=== PATIENT | male | born 1975 | race African-American/Black ===

== ENCOUNTER 2016-04-21 00:55 | Emergency (ER) | payer SELFPAY ==
[~2016-04-21] VITALS: Ht 188 cm; Wt 150.0 kg
[~2016-04-21 00:55] MED LIST: NIFE1TAB85 PO
[2016-04-21 01:09] VITALS: BP 182/84; PULSE 72; RESP 16; TEMP 97.8; O2SAT 99
[2016-04-21] MEDS ORDERED: MORPHINE SULFATE 4 MG/ML INJ IV PUSH ONE ×2 (01:30→06:15)
[2016-04-21] MEDS ORDERED: SODIUM CHLOR 0.9% 1000 ML INJ 1,000 ML IV ONE (01:30)
[2016-04-21] MEDS ORDERED: ONDANSETRON HCL 4 MG/2 ML VIAL ONE (01:36)
[2016-04-21] MEDS ORDERED: ONDANSETRON HCL 4 MG/2 ML VIAL IV ONE (01:45)
[2016-04-21 01:58] LABS: AUTOMATED NEUTROPHIL # 5.2 TH/MM3 (1.8-7.7); BASOPHIL % 0.5 % (0.0-2.0); EOSINOPHIL # 0.3 TH/MM3 (0-0.4); EOSINOPHIL % 3.6 % (0.0-4.0); HEMATOCRIT 43.7 % (39.0-51.0); HEMO FLAGS DIFF FINAL; LYMPH % 32.7 % (9.0-44.0); MEAN CELL VOLUME 86.2 FL (80.0-100.0); MEAN CORPUSCULAR HEMOGLOBIN 29.8 PG (27.0-34.0); MEAN CORPUSCULAR HGB CONC 34.5 % (32.0-36.0); MONO % 6.3 % (0.0-8.0); NEUT % 56.9 % (16.0-70.0); PLATELET COUNT 222 TH/MM3 (150-450); RED BLOOD COUNT 5.06 MIL/MM3 (4.50-5.90); RED CELL DISTRIBUTION WIDTH 13.6 % (11.6-17.2); WHITE BLOOD COUNT 9.2 TH/MM3 (4.0-11.0)
[2016-04-21 02:02] LABS: ALKALINE PHOSPHATASE 60 U/L (45-117); TOTAL BILIRUBIN ADULT 0.2 MG/DL (0.2-1.0)
[2016-04-21 02:04] LABS: ALT (GPT) 27 U/L (12-78); ANION GAP 8 MEQ/L (5-15); AST (GOT) 21 U/L (15-37); BICARBONATE 26.4 MEQ/L (21.0-32.0); BLOOD UREA NITROGEN 10 MG/DL (7-18); CHLORIDE 109 MEQ/L (98-107); GLOMERULAR FILTRATION RATE 91 ML/MIN (>89); POTASSIUM 3.8 MEQ/L (3.5-5.1); SODIUM (NA) 143 MEQ/L (136-145)
--- NOTE | 2016-04-21 02:38 | RADRPT ---
EXAM DATE/TIME: 04/21/2016 01:54 [facility] COMPARISON: No previous studies available for comparison. INDICATIONS : Trauma, fell backwards. Complains of head pain. Abrasion to left buddhist. RADIATION DOSE: 64.16 CTDIvol (mGy) MEDICAL HISTORY : Hypertension. Cardiovascular disease SURGICAL HISTORY : None. ENCOUNTER: Initial ACUITY: 1 day PAIN SCALE: 3/10 LOCATION: cranial TECHNIQUE: Multiple contiguous axial images were obtained of the head. Using automated exposure control and adj ustment of the mA and/or kV according to patient size, radiation dose was kept as low as reasonably a chievable to obtain optimal diagnostic quality images. FINDINGS: CEREBRUM: The ventricles are normal for age. No evidence of midline shift, mass lesion, hemorrhage or acute in farction. No extra-axial fluid collections are seen. POSTERIOR FOSSA: The cerebellum and brainstem are intact. The 4th ventricle is midline. The cerebellopontine angle i s unremarkable. EXTRACRANIAL: Truncation of the nasal bones anteriorly suggesting nasal bone fracture. SKULL: The calvaria is intact. No evidence of skull fracture. CONCLUSION: 1. No acute intracranial findings. 2. Likely nasal bone fracture. Bryan Shi MD on April 21, 2016 at 2:30 Board Certified Radiologist. This report was verified electronically.
--- NOTE | 2016-04-21 02:43 | RADRPT ---
EXAM DATE/TIME: 04/21/2016 01:54 [facility] COMPARISON: No previous studies available for comparison. INDICATIONS : Trauma, fell backwards. Complains of neck pain. RADIATION DOSE: 27.11 CTDIvol (mGy) MEDICAL HISTORY : Hypertension. Cardiovascular disease SURGICAL HISTORY : None. ENCOUNTER: Initial ACUITY: 1 day PAIN SCALE: 6/10 LOCATION: neck TECHNIQUE: Volumetric scanning of the cervical spine was performed. Multiplanar reconstructions in the sagittal, coronal and oblique axial planes were performed. Using automated exposure control and adjustment o f the mA and/or kV according to patient size, radiation dose was kept as low as reasonably achievable to obtain optimal diagnostic quality images. FINDINGS: VERTEBRAE: Normal vertebral body height. ALIGNMENT: No evidence of subluxation. C2-C3: The bony spinal canal is normal in size. No evidence of disc bulge or herniation. The neural forami na are bilaterally patent. C3-C4: Broad-based disc bulge. Mild central canal narrowing and mild right neural foraminal narrowing. C4-C5: Broad-based disc bulge. Central canal diameter within normal limits. Neural foraminal diameters withi n normal limits. C5-C6: Broad-based disc osteophyte complex right greater than left. Mild right neural foraminal narrowing. M ild to moderate central canal narrowing. C6-C7: Broad-based disc osteophyte complex left greater than right. Moderate left neural foraminal narrowing . Moderate narrowing of the left side of the central canal. C7-T1: Broad-based disc osteophyte complex left greater than right. Severe left neural foraminal narrowing. CONCLUSION: No evidence of fracture. Multilevel degenerative findings. Bryan Shi MD on April 21, 2016 at 2:36 Board Certified Radiologist. This report was verified electronically.
--- NOTE | 2016-04-21 02:46 | RADRPT ---
EXAM DATE/TIME: 04/21/2016 02:00 [facility] COMPARISON: No previous studies available for comparison. INDICATIONS : Trauma, fell backwards. Complains of back pain. RADIATION DOSE: 32.92 CTDIvol (mGy) ; Combined studies - Thoracic Spine/Lumbar Spine MEDICAL HISTORY : Hypertension. Cardiovascular disease SURGICAL HISTORY : None. ENCOUNTER: Initial ACUITY: 1 day PAIN SCALE: 6/10 LOCATION: lower back TECHNIQUE: Volumetric scanning of the lumbar spine was performed. Multiplanar reconstructions in the sagittal, coronal and oblique axial planes were performed. Using automated exposure control and adjustment of the mA and/or kV according to patient size, radiation dose was kept as low as reasonably achievable t o obtain optimal diagnostic quality images. FINDINGS: VERTEBRAE: Normal vertebral body height. ALIGNMENT: No evidence of subluxation. T12-L1: The thecal sac has a normal diameter. No evidence of disc bulge or protrusion. The neural foramina are patent bilaterally. L1-L2: The thecal sac has a normal diameter. No evidence of disc bulge or protrusion. The neural foramina are patent bilaterally. L2-L3: The thecal sac has a normal diameter. No evidence of disc bulge or protrusion. The neural foramina are patent bilaterally. L3-L4: Broad-based disc bulge. Mild left neural foraminal narrowing. Central canal diameter within normal li mits. L4-L5: Broad-based disc bulge. Moderate severity right-sided facet arthrosis. Mild left neural foraminal tyler rowing. Central canal diameter within normal limits. L5-S1: The thecal sac has a normal diameter. No evidence of disc bulge or protrusion. The neural foramina are patent bilaterally. CONCLUSION: No evidence of fracture. Multilevel degenerative findings. Bryan Shi MD on April 21, 2016 at 2:41 Board Certified Radiologist. This report was verified electronically.
--- NOTE | 2016-04-21 02:49 | RADRPT ---
EXAM DATE/TIME: 04/21/2016 02:00 [facility] COMPARISON: No previous studies available for comparison. INDICATIONS : Trauma, fell backwards. Complains of back pain. RADIATION DOSE: 32.92 CTDIvol (mGy) ; Combined studies - Thoracic Spine/Lumbar Spine MEDICAL HISTORY : Hypertension. Cardiovascular disease SURGICAL HISTORY : None. ENCOUNTER: Initial ACUITY: 1 day PAIN SCALE: 6/10 LOCATION: thoracic TECHNIQUE: Volumetric scanning of the thoracic spine was performed. Multiplanar reconstructions in the sagittal , coronal and oblique axial planes were performed. Using automated exposure control and adjustment o f the mA and/or kV according to patient size, radiation dose was kept as low as reasonably achievable to obtain optimal diagnostic quality images. FINDINGS: The vertebral bodies of the thoracic spine are in normal alignment without evidence of subluxation. Vertebral body height is maintained. No fractures are seen. T1-T2: Normal. T2-T3: The thecal sac has a normal diameter. No evidence of disc bulge or protrusion. T3-T4: The thecal sac has a normal diameter. No evidence of disc bulge or protrusion. T4-T5: The thecal sac has a normal diameter. No evidence of disc bulge or protrusion. T5-T6: The thecal sac has a normal diameter. No evidence of disc bulge or protrusion. T6-T7: The thecal sac has a normal diameter. No evidence of disc bulge or protrusion. T7-T8: The thecal sac has a normal diameter. No evidence of disc bulge or protrusion. T8-T9: The thecal sac has a normal diameter. No evidence of disc bulge or protrusion. T9-T10: The thecal sac has a normal diameter. No evidence of disc bulge or protrusion. T10-T11: The thecal sac has a normal diameter. No evidence of disc bulge or protrusion. T11-T12: The thecal sac has a normal diameter. No evidence of disc bulge or protrusion. T12-L1: The thecal sac has a normal diameter. No evidence of disc bulge or protrusion. CONCLUSION: No evidence of fracture. Bryan Shi MD on April 21, 2016 at 2:44 Board Certified Radiologist. This report was verified electronically.
--- NOTE | 2016-04-21 02:59 | PD ---
HPI Chief Complaint: Fall Time Seen by Provider: 01:04 Travel History International Travel<30 days: No Contact w/Intl Traveler<30days: No Traveled to known affect area: No History of Present Illness HPI A 40-year-old man who presents emergency department after slip and fall on the stairs. Complains of back pain. He also states he has some paresthesias in his left leg. Bystanders state he had positive LOC. A little bit nauseous no vomiting. No weakness. No other complaints. History Past Medical History Medical History: Denies Significant Hx Past Surgical History Surgical History: No Previous Surgery Social History Alcohol Use: No Tobacco Use: Yes (1 PPD) Allergies-Medications (Allergen,Severity, Reaction): Coded Allergies: Haldol (Verified Allergy, Severe, LOCK JAW, 10/12/11) Reported Meds & Prescriptions Reported Meds & Active Scripts Active Lortab (Hydrocodone-Acetaminophen) 5-325 Mg Tab 1-2 Tab PO Q6H PRN Naprosyn (Naproxen) 500 Mg Tab 500 Mg PO BID PRN Review of Systems Except as stated in HPI: all other systems reviewed are Neg Physical Exam Narrative GENERAL: Well-appearing 40-year-old man, no acute distress. Full spinal mobilization. SKIN: Warm and dry. HEAD: Normocephalic. He is a little bit of clotted blood on the back of his head. EYES: Pupils equal and round. No scleral icterus. No injection or drainage. ENT: No nasal bleeding or discharge. Mucous membranes pink and moist. NECK: Trachea midline. No midline tenderness in the lower cervical spine. Cervical collar in place. CARDIOVASCULAR: Regular rate and rhythm. No murmur appreciated. RESPIRATORY: No accessory muscle use. Clear to auscultation. Breath sounds equal bilaterally. GASTROINTESTINAL: Abdomen soft, non-tender, nondistended. Hepatic and splenic margins not palpable. MUSCULOSKELETAL: No obvious deformities. Pain in the upper lumbar spine with tenderness. No obvious step-off's or deformities. NEUROLOGICAL: Awake and alert. No obvious cranial nerve deficits. Subjective tingling in the left leg. Sensations intact to light touch. Strength full and equal both lower extremities. PSYCHIATRIC: Appropriate mood and affect; insight and judgment normal. Data Data Last Documented VS Vital Signs Date Time Temp Pulse Resp B/P Pulse Ox O2 Delivery O2 Flow Rate FiO2 04/21/16 01:09 97.8 72 16 182/[address] Brain W/O Iv Contrast(Rout) (04/21/16 ) Ct Cerv Spine W/O Contrast (04/21/16 ) Ct Thor Spine W/O Contrast (04/21/16 ) Ct Lumb Spine W/O Contrast (04/21/16 ) Iv Access Insert/Monitor (04/21/16 01:28) Complete Blood Count With Diff (04/21/16 01:28) Comprehensive Metabolic Panel (04/21/16 01:28) Sodium Chlor 0.9% 1000 Ml Inj (Ns 1000 M (04/21/16 01:30) Morphine Inj (Morphine Inj) (04/21/16 01:30) Ondansetron Inj (Zofran Inj) (04/21/16 01:36) Ondansetron Inj (Zofran Inj) (04/21/16 01:45) Lidocai-Epi 1%-1:100,000 Inj (Xylocaine- (04/21/16 04:15) Labs Laboratory Tests Test 04/21/16 01:40 White Blood Count 9.2 TH/MM3 Red Blood Count 5.06 MIL/MM3 Hemoglobin 15.1 GM/DL Hematocrit 43.7 % Mean Corpuscular Volume 86.2 FL Mean Corpuscular Hemoglobin 29.8 PG Mean Corpuscular Hemoglobin 34.5 % Concent Red Cell Distribution Width 13.6 % Platelet Count 222 TH/MM3 Mean Platelet Volume 7.3 FL Neutrophils (%) (Auto) 56.9 % Lymphocytes (%) (Auto) 32.7 % Monocytes (%) (Auto) 6.3 % Eosinophils (%) (Auto) 3.6 % Basophils (%) (Auto) 0.5 % Neutrophils # (Auto) 5.2 TH/MM3 Lymphocytes # (Auto) 3.0 TH/MM3 Monocytes # (Auto) 0.6 TH/MM3 Eosinophils # (Auto) 0.3 TH/MM3 Basophils # (Auto) 0.0 TH/MM3 CBC Comment DIFF FINAL Differential Comment Sodium Level 143 MEQ/L Potassium Level 3.8 MEQ/L Chloride Level 109 MEQ/L Carbon Dioxide Level 26.4 MEQ/L Anion Gap 8 MEQ/L Blood Urea Nitrogen 10 MG/DL Creatinine 1.09 MG/DL Estimat Glomerular Filtration 91 ML/MIN Rate Random Glucose 125 MG/DL Calcium Level 8.3 MG/DL Total Bilirubin 0.2 MG/DL Aspartate Amino Transf 21 U/L (AST/SGOT) Alanine Aminotransferase 27 U/L (ALT/SGPT) Alkaline Phosphatase 60 U/L Total Protein 6.9 GM/DL Albumin 3.4 GM/DL MDM Medical Decision Making Medical Screen Exam Complete: Yes Emergency Medical Condition: Yes Interpretation(s) LABS: CBC is unremarkable. CMP is unremarkable. Head CT: No acute intracranial findings. Likely nasal bone fracture. CT C-spine: No evidence of fracture. Multilevel degenerative findings. T-spine CT: Negative L-spine CT: No evidence of fracture. Multilevel degenerative findings. Differential Diagnosis Fall, contusion, or proximal he had, neuropathy, fracture, other Narrative Course Medical decision making Is a 40-year-old male presents emergency department after fall on the stairs. Looks well. Complains mostly of back pain. He also has some subjective paresthesias in the left leg. Neuro exam is otherwise normal. CT imaging is unremarkable. We'll do gait testing, reassess. May have some neurapraxia from contusion and hip or sciatic nerve. I don't see any other evidence of myelopathy or significant radiculopathy. FINAL: Patient looks well. CTs are negative. Does have a small laceration to back of his head. At first we didn't feel like this needed repair, and the family member called us back in the room visitor called us back in the room after it started bleeding again and was more open. We will repair this primarily, and the plan on discharge. Diagnosis Primary Impression: Back pain Qualified Code: M54.5 - Acute midline low back pain without sciatica Additional Impressions: Fall Qualified Code: W19.XXXA - Fall, initial encounter Scalp laceration Additional Instructions: Take Naprosyn as needed for pain. Take Lortab if needed for severe pain. Return to the emergency department in 7 days for staple removal. You will likely be more sore tomorrow. You may have soreness in your neck, back , arms or legs. You should not have any chest pain, trouble breathing, abdominal pain, worsening headache, any worsening numbness or tingling, or difficulty walking. If any of these other symptoms develop he should return to the emergency Department immediately. Follow-up with her primary physician if you're not completely well in 5-7 days. Med/Other Pt SpecificInfo: Prescription(s) given Scripts Hydrocodone-Acetaminophen (Lortab)5-325 Mg Tab1-2 Tab PO Q6H PRN (PAIN) #15 TAB Ref 0 Prov:Fernando Winn MD 04/21/16 Naproxen (Naprosyn)500 Mg [id number] Mg PO BID PRN (PAIN SCALE 1 TO 10) #20 TAB Prov:Fernando Winn MD 04/21/16 Disposition: 01 DISCHARGE HOME Condition: Stable Fernando Winn MD Apr 21, 2016 02:59
[2016-04-21] MEDS ORDERED: NAPR500 PO (03:05)
[2016-04-21] MEDS ORDERED: HYDR-3533 PO (03:05)
[2016-04-21] MEDS ORDERED: LIDOCAINE 1%/EPINEPHrine 1:100,000 SOLN 20 ML VIAL INFIL ONE (04:15)
--- NOTE | 2016-04-21 04:37 | PD ---
Physical Exam Narrative I was asked by Dr. Mcclendon to repair patient's scalp laceration. Please see his documentation for H&P. Data Data Last Documented VS Vital Signs Date Time Temp Pulse Resp B/P Pulse Ox O2 Delivery O2 Flow Rate FiO2 04/21/16 01:09 97.8 72 16 182/[address] Brain W/O Iv Contrast(Rout) (04/21/16 ) Ct Cerv Spine W/O Contrast (04/21/16 ) Ct Thor Spine W/O Contrast (04/21/16 ) Ct Lumb Spine W/O Contrast (04/21/16 ) Iv Access Insert/Monitor (04/21/16 01:28) Complete Blood Count With Diff (04/21/16 01:28) Comprehensive Metabolic Panel (04/21/16 01:28) Sodium Chlor 0.9% 1000 Ml Inj (Ns 1000 M (04/21/16 01:30) Morphine Inj (Morphine Inj) (04/21/16 01:30) Ondansetron Inj (Zofran Inj) (04/21/16 01:36) Ondansetron Inj (Zofran Inj) (04/21/16 01:45) Lidocai-Epi 1%-1:100,000 Inj (Xylocaine- (04/21/16 04:15) Labs Laboratory Tests Test 04/21/16 01:40 White Blood Count 9.2 TH/MM3 Red Blood Count 5.06 MIL/MM3 Hemoglobin 15.1 GM/DL Hematocrit 43.7 % Mean Corpuscular Volume 86.2 FL Mean Corpuscular Hemoglobin 29.8 PG Mean Corpuscular Hemoglobin 34.5 % Concent Red Cell Distribution Width 13.6 % Platelet Count 222 TH/MM3 Mean Platelet Volume 7.3 FL Neutrophils (%) (Auto) 56.9 % Lymphocytes (%) (Auto) 32.7 % Monocytes (%) (Auto) 6.3 % Eosinophils (%) (Auto) 3.6 % Basophils (%) (Auto) 0.5 % Neutrophils # (Auto) 5.2 TH/MM3 Lymphocytes # (Auto) 3.0 TH/MM3 Monocytes # (Auto) 0.6 TH/MM3 Eosinophils # (Auto) 0.3 TH/MM3 Basophils # (Auto) 0.0 TH/MM3 CBC Comment DIFF FINAL Differential Comment Sodium Level 143 MEQ/L Potassium Level 3.8 MEQ/L Chloride Level 109 MEQ/L Carbon Dioxide Level 26.4 MEQ/L Anion Gap 8 MEQ/L Blood Urea Nitrogen 10 MG/DL Creatinine 1.09 MG/DL Estimat Glomerular Filtration 91 ML/MIN Rate Random Glucose 125 MG/DL Calcium Level 8.3 MG/DL Total Bilirubin 0.2 MG/DL Aspartate Amino Transf 21 U/L (AST/SGOT) Alanine Aminotransferase 27 U/L (ALT/SGPT) Alkaline Phosphatase 60 U/L Total Protein 6.9 GM/DL Albumin 3.4 GM/DL [facility] Supervised Visit with [facility]: No Procedures Procedure Narrative LACERATION REPAIR LOCATION: Left parietal lobe LENGTH: Approximately 1 cm NUMBER OF STITCHES/BETO: 2 beto REPAIR: Verbal consent was obtained. The area of the laceration was cleaned and prepped. The laceration was infiltrated with lidocaine with epi. The wound was copiously irrigated and explored without evidence of foreign body, bony involvement, ligament injury, tendon injury, or neurovascular injury. The wound was closed using beto. This was a single layer repair. A sterile dressing was applied by nurse. The patient was advised to keep the affected area as clean and dry as possible using soap and water. There were no complications. Patient tolerated the procedure well. Diagnosis Primary Impression: Back pain Qualified Code: M54.5 - Acute midline low back pain without sciatica Additional Impressions: Scalp laceration Fall Qualified Code: W19.XXXA - Fall, initial encounter Additional Instruction: Take Naprosyn as needed for pain. Take Lortab if needed for severe pain. Return to the emergency department in 7 days for staple removal. You will likely be more sore tomorrow. You may have soreness in your neck, back , arms or legs. You should not have any chest pain, trouble breathing, abdominal pain, worsening headache, any worsening numbness or tingling, or difficulty walking. If any of these other symptoms develop he should return to the emergency Department immediately. Follow-up with her primary physician if you're not completely well in 5-7 days. Scripts Hydrocodone-Acetaminophen (Lortab)5-325 Mg Tab1-2 Tab PO Q6H PRN (PAIN) #15 TAB Ref 0 Prov:Fernando Winn MD 04/21/16 Naproxen (Naprosyn)500 Mg [id number] Mg PO BID PRN (PAIN SCALE 1 TO 10) #20 TAB Prov:Fernando Winn MD 04/21/16 Disposition: 01 DISCHARGE HOME Condition: Stable Matt Hinkle Apr 21, 2016 04:37
[2016-04-21] MEDS ORDERED: KETOROLAC TROMETHAMINE 30 MG/ML (IVP) VIAL IVP ONE (06:15)
== END 2016-04-21 06:55 | disposition home or self-care (01) ==
LOC: NEPE 00:55
DX: M54.5 Low back pain (principal); S01.01XA Laceration without foreign body of scalp, initial encounter; R20.2 Paresthesia of skin; R11.0 Nausea; F17.200 Nicotine dependence, unspecified, uncomplicated; W10.9XXA Fall (on) (from) unspecified stairs and steps, initial encounter
CPT/HCPCS: 12001; 70450; 72125; 72128; 72131; 80053; 85025; 96361; 96374; 96375; 96376; 99284; J1885; J2270; J2405; J7030

== ENCOUNTER 2016-08-08 23:07 | Emergency (ER) | payer SELFPAY ==
[~2016-08-08] VITALS: Ht 180.3 cm; Wt 115.0 kg
[~2016-08-08 23:07] MED LIST changes: +HYDR-3533 PO; +NAPR500 PO; -NIFE1TAB85 PO
[2016-08-08 23:23] VITALS: BP 137/81; PULSE 82; RESP 16; O2SAT 97
--- NOTE | 2016-08-08 23:24 | PD ---
HPI Chief Complaint: Fall Time Seen by Provider: 23:19 Travel History International Travel<30 days: No Contact w/Intl Traveler<30days: No Traveled to known affect area: No History of Present Illness HPI 40-year-old male presents to the emergency department by EMS transport with backboard C-spine immobilization after a slip and fall in the bathroom just prior to arrival to the emergency department. Patient is uncertain whether he did or did not have loss of consciousness. Patient did sustain a small laceration to the posterior occiput of the scalp. Patient also complained of low back pain. According to EMS report he did complain of some focal tingling to the left hand/digits but states that has improved. No lower leg numbness tingling or weakness. No prior history of head injury neck injury or back injury reportedly. Patient takes no medications on a daily basis and has no prescription medications. Patient does not know his tetanus status. Last oral intake was approximately an hour before the event. 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) Hypertension: Yes (newly diagnosed today) Psychiatric: Yes Past Surgical History Surgical History: No Previous Surgery Coronary Artery Bypass Graft: No Social History Alcohol Use: No Tobacco Use: No Substance Use: No (PT DENIES) Allergies-Medications (Allergen,Severity, Reaction): Coded Allergies: Haldol (Verified Allergy, Severe, LOCK JAW, 08/08/16) Reported Meds & Prescriptions Reported Meds & Active Scripts Active Robaxin (Methocarbamol) 750 Mg Tab 750 Mg PO Q6HR Lortab (Hydrocodone-Acetaminophen) 5-325 Mg Tab 1-2 Tab PO Q6H PRN Naprosyn (Naproxen) 500 Mg Tab 500 Mg PO BID PRN Physical Exam Narrative GENERAL: Well-developed well-nourished male in no respiratory distress appears mildly anxious with backboard C-spine immobilization*: GCS 15 SKIN: Warm and dry. HEAD: Patient with 2 cm linear laceration to the right upper posterior scalp with soft tissue tenderness to palpation no bony abnormality. EYES: Pupils equal and round. No scleral icterus. No injection or drainage. ENT: No nasal bleeding or discharge. Mucous membranes pink and moist. No hemotympanum. NECK: Trachea midline. No JVD. C-collar in place. CARDIOVASCULAR: Regular rate and rhythm. RESPIRATORY: No accessory muscle use. Clear to auscultation. Breath sounds equal bilaterally. GASTROINTESTINAL: Abdomen soft, non-tender, nondistended. Hepatic and splenic margins not palpable. MUSCULOSKELETAL: Extremities without clubbing, cyanosis, or edema. No obvious deformities. Patient log rolled from backboard with maintain spinal immobilization. No tenderness to palpation along the thoracic spine, mild tenderness to palpation along the lower lumbar spine; no bony step-off. No flank tenderness bilaterally. Rectal exam performed with normal sphincter tone. NEUROLOGICAL: Awake and alert. No obvious cranial nerve deficits. Motor grossly within normal limits. Five out of 5 muscle strength in the arms and legs. Sensory exam intact bilateral upper extremities and lower extremities. DTRs 2+ and symmetric. Normal speech. PSYCHIATRIC: Appropriate mood and affect; insight and judgment normal. Data Data Last Documented VS Vital Signs Date Time Temp Pulse Resp B/P Pulse Ox O2 Delivery O2 Flow Rate FiO2 08/09/16 01:14 98.1 86 18 121/60 100 Room Air Orders Basic Metabolic Panel (Bmp) (08/08/16 23:19) Complete Blood Count With Diff (08/08/16 23:19) Prothrombin Time / Inr (Pt) (08/08/16 23:19) Act Partial Throm Time (Ptt) (08/08/16 23:19) Alcohol (Ethanol) (08/08/16 23:19) Chest, Single Ap (08/08/16 23:19) Ct Brain W/O Iv Contrast(Rout) (08/08/16 23:19) Ct Cerv Spine W/O Contrast (08/08/16 23:19) Iv Access Insert/Monitor (08/08/16 23:19) Ecg Monitoring (08/08/16 23:19) Oximetry (08/08/16 23:19) Oxygen Administration (08/08/16 23:19) Remove Backboard (08/08/16 23:19) Zekz-Rcr-Exbwup (Booster) Inj (Boostrix (08/08/16 23:30) Sodium Chlor 0.9% 1000 Ml Inj (Ns 1000 M (08/08/16 23:30) Spine, Lumbar - Ltd (Ap & Lat) (08/08/16 ) Remove Cervical Collar (08/09/16 00:32) Ondansetron Inj (Zofran Inj) (08/09/16 01:00) Morphine Inj (Morphine Inj) (08/09/16 01:00) Ketorolac Inj (Toradol Inj) (08/09/16 01:00) Lidocaine Pf 1% Inj (Xylocaine-Mpf 1% In (08/09/16 01:30) Labs Laboratory Tests Test 08/08/16 23:24 White Blood Count 8.6 TH/MM3 Red Blood Count 5.35 MIL/MM3 Hemoglobin 15.6 GM/DL Hematocrit 45.6 % Mean Corpuscular Volume 85.3 FL Mean Corpuscular Hemoglobin 29.2 PG Mean Corpuscular Hemoglobin 34.2 % Concent Red Cell Distribution Width 13.0 % Platelet Count 249 TH/MM3 Mean Platelet Volume 7.2 FL Neutrophils (%) (Auto) 55.0 % Lymphocytes (%) (Auto) 34.7 % Monocytes (%) (Auto) 6.4 % Eosinophils (%) (Auto) 3.5 % Basophils (%) (Auto) 0.4 % Neutrophils # (Auto) 4.7 TH/MM3 Lymphocytes # (Auto) 3.0 TH/MM3 Monocytes # (Auto) 0.6 TH/MM3 Eosinophils # (Auto) 0.3 TH/MM3 Basophils # (Auto) 0.0 TH/MM3 CBC Comment DIFF FINAL Differential Comment Prothrombin Time 10.6 SEC Prothromb Time International 1.0 RATIO Ratio Activated Partial 27.5 SEC Thromboplast Time Sodium Level 140 MEQ/L Potassium Level 3.8 MEQ/L Chloride Level 104 MEQ/L Carbon Dioxide Level 30.0 MEQ/L Anion Gap 6 MEQ/L Blood Urea Nitrogen 12 MG/DL Creatinine 1.20 MG/DL Estimat Glomerular Filtration 81 ML/MIN Rate Random Glucose 114 MG/DL Calcium Level 8.5 MG/DL Ethyl Alcohol Level LESS THAN 3 MG/DL MDM Medical Decision Making Medical Screen Exam Complete: Yes Emergency Medical Condition: Yes Medical Record Reviewed: Yes (patient was here April 2016 for back injury with negative CT thoracic and lumbar spine) Interpretation(s) Last Impressions Head CT 08/08/16 0342 Signed Impressions: Service Date/Time: Monday, August 08, 2016 23:51 - CONCLUSION: Normal examination. Fernando Ansari MD Chest X-Ray [id number]/08/[id number] Signed Impressions: Service Date/Time: Monday, August 08, 2016 23:46 - CONCLUSION: Normal examination. Fernando Ansari MD Cervical Spine CT [id number]/08/[id number] Signed Impressions: Service Date/Time: Monday, August 08, 2016 23:51 - CONCLUSION: Normal examination. Fernando Ansari MD Lumbar Spine X-Ray 08/08/16 0000 Signed Impressions: Service Date/Time: Monday, August 08, 2016 23:48 - CONCLUSION: Unremarkable limited examination of the lumbar spine. Fernando Ansari MD Vital Signs Date Time Temp Pulse Resp B/P Pulse Ox O2 Delivery O2 Flow Rate FiO2 08/08/16 23:23 82 16 137/81 97 Room Air 08/08/16 23:18 18 Differential Diagnosis Minor CHI, ICH scalp contusion, scalp laceration, skull fracture, cervical spine sprain strain fracture cord compression, contusion Narrative Course Patient removed from backboard with maintained spinal immobilization; imaging studies ordered CT brain noncontrast CT cervical spine noncontrast chest x-ray lumbar spine with limited views all found to reveal no acute abnormality or trauma changes At 12:43 AM cervical collar removed by me after CT cervical spine per reading radiologist reveals no acute abnormality; patient has a 2 cm linear scalp laceration to the right parietal scalp. One site stable. Patient administered morphine 3 mg IV along with Toradol 30 mg IV for management of associated pain Scalp laceration repaired Patient clinically improved and stable for outpatient management. Procedures Procedure Narrative LACERATION LOCATION: Right posterior scalp LENGTH: 2 cm NUMBER OF STITCHES/JOSE DANIEL: 3 REPAIR: The area of the laceration was prepped with Betadine and sterilely draped. The laceration was infiltrated with 1% lidocaine pain. The wound was copiously irrigated and explored without evidence of foreign body, tendon injury or neurovascular injury. The wound was closed using 5-0 Prolene. This was a single layer repair. A sterile dressing was applied. The patient was advised to keep the dressing clean and dry. Patient tolerated the procedure well. Diagnosis Primary Impression: Scalp laceration Qualified Code: S01.01XA - Scalp laceration, initial encounter Additional Impressions: Back pain Qualified Code: M54.5 - Acute midline low back pain without sciatica Minor closed head injury Referrals: Primary Care Physician call for appointment Patient Instructions: Narcotic given in the ED, General Instructions Additional Instructions: Increase fluid hydration Follow-up with primary care provider call on Thursday to schedule follow-up appointment; wound check 2 days, suture removal 5-7 days Take acetaminophen/Tylenol every 4 hours as needed for fever 100.4F or greater and/or for minor pain Take ibuprofen 800 mg as often as every 8 hours as needed for pain associated inflammation or for fever 100.4F or greater Take muscle relaxant Robaxin as prescribed as needed for muscle spasm Use ice intermittently to areas of soft tissue swelling and discomfort for the first 12-24 hours then moist heat for comfort as needed Return to the emergency department for any concerns or change in condition Med/Other Pt SpecificInfo: Prescription(s) given Scripts Methocarbamol (Robaxin)750 Mg [id number] Mg PO Q6HR #12 TAB Ref 0 Prov:Nehal Salazar MD 08/09/16 Disposition: 01 DISCHARGE HOME Condition: Stable Nehal Salazar MD Aug 08, 2016 23:24
[2016-08-08] MEDS ORDERED: SODIUM CHLOR 0.9% 1000 ML INJ 1,000 ML IV SCH (23:30)
[2016-08-08] MEDS ORDERED: DIPHTH/TETANUS/ACEL PERTUSSIS (BOOSTER) 0.5 ML VIAL/PFS IM ONE (23:30)
--- NOTE | 2016-08-09 00:03 | RADRPT ---
EXAM DATE/TIME: 08/08/2016 23:51 [facility] COMPARISON: No previous studies available for comparison. INDICATIONS : Trauma, fall and hit head. RADIATION DOSE: 50.21 CTDIvol (mGy) MEDICAL HISTORY : Cardiovascular disease. Hypertension. SURGICAL HISTORY : None. ENCOUNTER: Initial ACUITY: 1 day PAIN SCALE: 6/10 LOCATION: cranial TECHNIQUE: Multiple contiguous axial images were obtained of the head. Using automated exposure control and adj ustment of the mA and/or kV according to patient size, radiation dose was kept as low as reasonably a chievable to obtain optimal diagnostic quality images. DICOM format image data is available electro nically for review and comparison. FINDINGS: CEREBRUM: The ventricles are normal for age. No evidence of midline shift, mass lesion, hemorrhage or acute in farction. No extra-axial fluid collections are seen. POSTERIOR FOSSA: The cerebellum and brainstem are intact. The 4th ventricle is midline. The cerebellopontine angle i s unremarkable. EXTRACRANIAL: The visualized portion of the orbits is intact. The left TMJ remains wider than the right similar to April 2016 SKULL: The calvaria is intact. No evidence of skull fracture. CONCLUSION: Normal examination. Fernando Ansari MD on August 09, 2016 at 0:01 Board Certified Radiologist. This report was verified electronically.
--- NOTE | 2016-08-09 00:05 | RADRPT ---
EXAM DATE/TIME: 08/08/2016 23:46 [facility] COMPARISON: No previous studies available for comparison. INDICATIONS : Back pain from a fall. MEDICAL HISTORY : None. SURGICAL HISTORY : None. ENCOUNTER: Initial ACUITY: 1 day PAIN SCORE: 10/10 LOCATION: Bilateral Back FINDINGS: A single view of the chest demonstrates the lungs to be symmetrically aerated without evidence of mas s, infiltrate or effusion. The cardiomediastinal contours are unremarkable. Osseous structures are intact. CONCLUSION: Normal examination. Fernando Ansari MD on August 09, 2016 at 0:03 Board Certified Radiologist. This report was verified electronically.
[2016-08-09 00:07] LABS: AUTOMATED NEUTROPHIL # 4.7 TH/MM3 (1.8-7.7); BASOPHIL % 0.4 % (0.0-2.0); EOSINOPHIL # 0.3 TH/MM3 (0-0.4); EOSINOPHIL % 3.5 % (0.0-4.0); HEMATOCRIT 45.6 % (39.0-51.0); HEMO FLAGS DIFF FINAL; LYMPH % 34.7 % (9.0-44.0); MEAN CELL VOLUME 85.3 FL (80.0-100.0); MEAN CORPUSCULAR HEMOGLOBIN 29.2 PG (27.0-34.0); MEAN CORPUSCULAR HGB CONC 34.2 % (32.0-36.0); MONO % 6.4 % (0.0-8.0); PLATELET COUNT 249 TH/MM3 (150-450); RED BLOOD COUNT 5.35 MIL/MM3 (4.50-5.90); WHITE BLOOD COUNT 8.6 TH/MM3 (4.0-11.0)
--- NOTE | 2016-08-09 00:08 | RADRPT ---
EXAM DATE/TIME: 08/08/2016 23:48 [facility] COMPARISON: No previous studies available for comparison. INDICATIONS : Back pain from a fall. MEDICAL HISTORY : None. SURGICAL HISTORY : None. ENCOUNTER: Initial ACUITY: 1 day PAIN SCORE: 10/10 LOCATION: Bilateral back FINDINGS: Two view examination was performed. There are five non-rib bearing vertebral bodies. The vertebral bodies are in normal alignment without evidence of subluxation or scoliosis. The disc spaces are humberto ntained. The pedicles are intact. Bony mineralization is normal. No fracture is identified. CONCLUSION: Unremarkable limited examination of the lumbar spine. Fernando Ansari MD on August 09, 2016 at 0:06 Board Certified Radiologist. This report was verified electronically.
[2016-08-09 00:17] LABS: APTT (PATIENT) 27.5 SEC (24.3-30.1); PROTHROMBIN TIME - PATIENT 10.6 SEC (9.8-11.6)
[2016-08-09 00:26] LABS: ANION GAP 6 MEQ/L (5-15); BLOOD UREA NITROGEN 12 MG/DL (7-18); CHLORIDE 104 MEQ/L (98-107); GLOMERULAR FILTRATION RATE 81 ML/MIN (>89); POTASSIUM 3.8 MEQ/L (3.5-5.1); SODIUM (NA) 140 MEQ/L (136-145)
--- NOTE | 2016-08-09 00:26 | RADRPT ---
EXAM DATE/TIME: 08/08/2016 23:51 [facility] COMPARISON: CT CERVICAL SPINE W/O CONTRAST, April 21, 2016, 1:54. INDICATIONS : Trauma, fall and hit head. RADIATION DOSE: 21.60 CTDIvol (mGy) MEDICAL HISTORY : Cardiovascular disease. Hypertension. SURGICAL HISTORY : None. ENCOUNTER: Initial ACUITY: 1 day PAIN SCALE: 3/10 LOCATION: neck TECHNIQUE: Volumetric scanning of the cervical spine was performed. Multiplanar reconstructions in the sagittal, coronal and oblique axial planes were performed. Using automated exposure control and adjustment o f the mA and/or kV according to patient size, radiation dose was kept as low as reasonably achievable to obtain optimal diagnostic quality images. DICOM format image data is available electronically f or review and comparison. FINDINGS: VERTEBRAE: Normal vertebral body height. ALIGNMENT: No evidence of subluxation. C2-C3: The bony spinal canal is normal in size. No evidence of disc bulge or herniation. The neural forami na are bilaterally patent. C3-C4: The bony spinal canal is normal in size. No evidence of disc bulge or herniation. The neural forami na are bilaterally patent. C4-C5: The bony spinal canal is normal in size. No evidence of disc bulge or herniation. The neural forami na are bilaterally patent. C5-C6: The bony spinal canal is normal in size. No evidence of disc bulge or herniation. The neural forami na are bilaterally patent. C6-C7: The bony spinal canal is normal in size. No evidence of disc bulge or herniation. The neural forami na are bilaterally patent. C7-T1: The bony spinal canal is normal in size. No evidence of disc bulge or herniation. The neural forami na are bilaterally patent. CONCLUSION: Normal examination. Fernando Ansari MD on August 09, 2016 at 0:24 Board Certified Radiologist. This report was verified electronically.
[2016-08-09] MEDS ORDERED: MORPHINE SULFATE 4 MG/ML INJ IV PUSH ONE (01:00)
[2016-08-09] MEDS ORDERED: KETOROLAC TROMETHAMINE 30 MG/ML (IVP) VIAL IV PUSH ONE (01:00)
[2016-08-09] MEDS ORDERED: ONDANSETRON HCL 4 MG/2 ML VIAL IV PUSH ONE (01:00)
[2016-08-09 01:14] VITALS: BP 121/60; PULSE 86; RESP 18; TEMP 98.1; O2SAT 100
[2016-08-09] MEDS ORDERED: LIDOCAINE HCL 1% PF 30 ML VIAL INFIL ONE (01:30)
[2016-08-09] MEDS ORDERED: ROBA750T PO (01:49)
== END 2016-08-09 02:39 | disposition home or self-care (01) ==
LOC: NEPC 23:07
DX: S01.01XA Laceration without foreign body of scalp, initial encounter (principal); M54.5 Low back pain; M54.9 Dorsalgia, unspecified; S09.90XA Unspecified injury of head, initial encounter; I10 Essential (primary) hypertension; W01.0XXA Fall on same level from slipping, tripping and stumbling without subsequent striking against object, initial encounter; Z79.899 Other long term (current) drug therapy; Z23 Encounter for immunization
CPT/HCPCS: 12001; 70450; 71010; 72100; 72125; 80048; 80307; 85025; 85610; 85730; 90471; 90715; 96374; 96375; 99285; J1885; J2270; J2405; J7030

== ENCOUNTER 2017-03-19 22:27 | Emergency (ER) | payer SELFPAY ==
[~2017-03-19] VITALS: Ht 188 cm; Wt 110.0 kg
[~2017-03-19 22:27] MED LIST changes: +ROBA750T PO
[2017-03-19 22:31] VITALS: BP 135/92; PULSE 97; RESP 16; TEMP 98.4; O2SAT 97
[2017-03-20 02:12] VITALS: TEMP 98.8
[2017-03-20] MEDS ORDERED: FAMOTIDINE 20 MG/2 ML VIAL IV PUSH SCH (02:30)
[2017-03-20] MEDS ORDERED: ONDANSETRON HCL 4 MG/2 ML VIAL IV PUSH ONE (02:30)
[2017-03-20] MEDS ORDERED: KETOROLAC TROMETHAMINE 30 MG/ML (IVP) VIAL IV PUSH ONE (02:30)
[2017-03-20 02:56] LABS: AUTOMATED NEUTROPHIL # 5.1 TH/MM3 (1.8-7.7); BASOPHIL % 0.4 % (0.0-2.0); EOSINOPHIL % 10.2 % (0.0-4.0); HEMATOCRIT 46.2 % (39.0-51.0); LYMPH % 26.4 % (9.0-44.0); LYMPHOCYTE # 2.5 TH/MM3 (1.0-4.8); MEAN CELL VOLUME 87.1 FL (80.0-100.0); MEAN CORPUSCULAR HEMOGLOBIN 30.2 PG (27.0-34.0); MEAN CORPUSCULAR HGB CONC 34.6 % (32.0-36.0); MEAN PLATELET VOLUME 6.9 FL (7.0-11.0); MONO % 8.7 % (0.0-8.0); MONOCYTE # 0.8 TH/MM3 (0-0.9); NEUT % 54.3 % (16.0-70.0); PLATELET COUNT 218 TH/MM3 (150-450); RED CELL DISTRIBUTION WIDTH 13.7 % (11.6-17.2); WHITE BLOOD COUNT 9.3 TH/MM3 (4.0-11.0)
[2017-03-20] MEDS ORDERED: methylPREDNISolone SOD SUCC 125 MG/2 ML VIAL IV PUSH SCH (03:15)
[2017-03-20] MEDS ORDERED: RESP: ALBUTEROL 2.5 MG/IPRATROPIUM 0.5 MG NEB (SCH) NEB ONE (03:15)
[2017-03-20] MEDS ORDERED: guaiFENesin/CODEINE SYRUP 200 MG/20 MG/10 ML CUP PO ONE (03:15)
[2017-03-20 03:44] LABS: ALBUMIN 3.4 GM/DL (3.4-5.0); ALT (GPT) 14 U/L (12-78); AST (GOT) 15 U/L (15-37); BICARBONATE 31.3 MEQ/L (21.0-32.0); BLOOD UREA NITROGEN 12 MG/DL (7-18); CALCIUM 8.7 MG/DL (8.5-10.1); CHLORIDE 104 MEQ/L (98-107); GLOMERULAR FILTRATION RATE 100 ML/MIN (>89); GLUCOSE,RANDOM 79 MG/DL (74-106); SODIUM (NA) 139 MEQ/L (136-145)
[2017-03-20 03:45] LABS: ALKALINE PHOSPHATASE 100 U/L (45-117); TOTAL BILIRUBIN ADULT 0.2 MG/DL (0.2-1.0); TOTAL PROTEIN 7.9 GM/DL (6.4-8.2)
[2017-03-20] MEDS ORDERED: GUAISYP4 PO (05:28)
[2017-03-20] MEDS ORDERED: DIPH12.5S PO (05:28)
[2017-03-20] MEDS ORDERED: IBUP-232 PO (05:28)
[2017-03-20] MEDS ORDERED: IPRA17I INH (05:28)
[2017-03-20] MEDS ORDERED: PRED50 PO (05:30)
--- NOTE | 2017-03-20 05:37 | PD ---
HPI Chief Complaint: GI Complaint Time Seen by Provider: 02:04 Travel History International Travel<30 days: No Contact w/Intl Traveler<30days: No Traveled to known affect area: No History of Present Illness HPI Patient is a 41-year-old male he was seen earlier in [facility] for upper respiratory like symptoms and vomited and then he was upgraded to come to [facility] pod. Patient is complaining of congestion mucus in his upper airway vomiting generalized malaise flu like symptoms as well as wheezing cough. 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) Hypertension: Yes Psychiatric: Yes Respiratory: Yes (Asthma) Immunizations Current: Yes Tetanus Vaccination: < 5 Years Influenza Vaccination: No Past Surgical History Surgical History: No Previous Surgery Coronary Artery Bypass Graft: No Social History Alcohol Use: No Tobacco Use: No Substance Use: No (PT DENIES) Allergies-Medications (Allergen,Severity, Reaction): Coded Allergies: haloperidol (Unverified Allergy, Severe, LOCK JAW, 03/20/17) Reported Meds & Prescriptions Reported Meds & Active Scripts Active Prednisone 50 Mg Tab 50 Mg PO DAILY Ibuprofen 600 Mg Tab 600 Mg PO Q6H PRN Guaifenesin AC Liq (Guaifenesin-Codeine Liq) 100-10 Mg/5 Ml Syrp 10 Ml PO Q6H PRN Diphenhydramine Liq (Diphenhydramine HCl) 12.5 Mg/5 Ml Elix 12.5 Mg PO Q6H PRN Atrovent HFA 12.9 GM Inh (Ipratropium Hallock) 17 Mcg/Actuation Aer 2 Puff INH Q6HR PRN Review of Systems Except as stated in HPI: all other systems reviewed are Neg Physical Exam Narrative GENERAL: Patient seems uncomfortable but is nontoxic appearing no obvious respiratory distress SKIN: Warm and dry. HEAD: Atraumatic. Normocephalic. EYES: Pupils equal and round. No scleral icterus. No injection or drainage. ENT: No nasal bleeding or discharge. Mucous membranes pink and moist. Congested nasally posterior pharynx erythematous NECK: Trachea midline. No JVD. CARDIOVASCULAR: Regular rate and rhythm. RESPIRATORY: No accessory muscle use. bilaterally. Patient is minimal wheeze in the upper air cedeno bilaterally GASTROINTESTINAL: Abdomen soft, non-tender, nondistended. Hepatic and splenic margins not palpable. MUSCULOSKELETAL: Extremities without clubbing, cyanosis, or edema. No obvious deformities. NEUROLOGICAL: Awake and alert. No obvious cranial nerve deficits. Motor grossly within normal limits. Five out of 5 muscle strength in the arms and legs. Normal speech. PSYCHIATRIC: Appropriate mood and affect; insight and judgment normal. Data Data Last Documented VS Orders Orders Influenzae A/B Antigen (03/20/17 01:01) Complete Blood Count With Diff (03/20/17 02:18) Comprehensive Metabolic Panel (03/20/17 02:18) Lipase (03/20/17 02:18) Famotidine Inj (Pepcid Inj) (03/20/17 02:30) Ketorolac Inj (Toradol Inj) (03/20/17 02:30) Ondansetron Inj (Zofran Inj) (03/20/17 02:30) Albuterol-Ipratropium Neb (Duoneb Neb) (03/20/17 03:15) Methylprednisolone So Succ Inj (Solumedr (03/20/17 03:15) Guaifen-Cod 200-20 Mg/10ml Liq (Robituss (03/20/17 03:15) Ed Discharge Order (03/20/17 05:43) Labs Laboratory Tests Test 03/20/17 02:35 White Blood Count 9.3 TH/MM3 Red Blood Count 5.30 MIL/MM3 Hemoglobin 16.0 GM/DL Hematocrit 46.2 % Mean Corpuscular Volume 87.1 FL Mean Corpuscular Hemoglobin 30.2 PG Mean Corpuscular Hemoglobin Concent 34.6 % Red Cell Distribution Width 13.7 % Platelet Count 218 TH/MM3 Mean Platelet Volume 6.9 FL Neutrophils (%) (Auto) 54.3 % Lymphocytes (%) (Auto) 26.4 % Monocytes (%) (Auto) 8.7 % Eosinophils (%) (Auto) 10.2 % Basophils (%) (Auto) 0.4 % Neutrophils # (Auto) 5.1 TH/MM3 Lymphocytes # (Auto) 2.5 TH/MM3 Monocytes # (Auto) 0.8 TH/MM3 Eosinophils # (Auto) 1.0 TH/MM3 Basophils # (Auto) 0.0 TH/MM3 CBC Comment DIFF FINAL Differential Comment Blood Urea Nitrogen 12 MG/DL Creatinine 1.00 MG/DL Random Glucose 79 MG/DL Total Protein 7.9 GM/DL Albumin 3.4 GM/DL Calcium Level 8.7 MG/DL Alkaline Phosphatase 100 U/L Aspartate Amino Transf (AST/SGOT) 15 U/L Alanine Aminotransferase (ALT/SGPT) 14 U/L Total Bilirubin 0.2 MG/DL Sodium Level 139 MEQ/L Potassium Level 4.1 MEQ/L Chloride Level 104 MEQ/L Carbon Dioxide Level 31.3 MEQ/L Anion Gap 4 MEQ/L Estimat Glomerular Filtration Rate 100 ML/MIN Lipase 97 U/L [facility] Medical Decision Making Medical Screen Exam Complete: Yes Emergency Medical Condition: Yes Differential Diagnosis Influenza versus viral illness versus strep pharyngitis versus upper respiratory infection NOS versus gastroenteritis Narrative Course pt has symptomatic treatment feels Diagnosis Primary Impression: Viral illness Patient Instructions: Acute Bronchitis (ED), General Instructions Scripts Prednisone (Prednisone) 50 Mg Tab 50 MG PO DAILY, #4 TAB 0 Refills Prov: Jerson Mckeon MD 03/20/17 Ibuprofen (Ibuprofen) 600 Mg Tab 600 MG PO Q6H Y for Pain/Inflammation, #20 TAB 0 Refills Prov: Jerson Mckeon MD 03/20/17 Guaifenesin-Codeine Liq (Guaifenesin AC Liq) 100-10 Mg/5 Ml Syrp 10 ML PO Q6H Y for COUGH, #1 BOTTLE 0 Refills Prov: Jerson Mckeon MD 03/20/17 Diphenhydramine Liq (Diphenhydramine Liq) 12.5 Mg/5 Ml Elix 12.5 MG PO Q6H Y for ALLERGIES, #1 BOTTLE 0 Refills Prov: Jerson Mckeon MD 03/20/17 Ipratropium HFA 12.9 GM Inh (Atrovent HFA 12.9 GM Inh) 17 Mcg/Actuation Aer 2 PUFF INH Q6HR Y for SHORTNESS OF BREATH, #1 INHALER 0 Refills Prov: Jerson Mckeon MD 03/20/17 Disposition: 01 DISCHARGE HOME Condition: Good Jerson Mckeon MD Mar 20, 2017 05:37
== END 2017-03-20 06:16 | disposition home or self-care (01) ==
LOC: NEPC 22:27
DX: B34.9 Viral infection, unspecified (principal); J45.909 Unspecified asthma, uncomplicated
CPT/HCPCS: 80053; 83690; 85025; 87804; 94664; 96374; 96375; 99284; J1885; J2405; J2930